=== PATIENT | female | born 1970 | race Caucasian/White ===

== ENCOUNTER 2025-01-12 09:35 | Emergency (ER) | payer BC, SELFPAY ==
[2025-01-12 09:44] VITALS: BP 121/79; PULSE 84; RESP 19; TEMP 36.7; O2SAT 95; BMI 24.5
--- NOTE | 2025-01-12 09:56 | EKG_ITS ---
[facility] Test Date: 2025-01-12 Pat Name: MARIKA FLORENTINO Department: Room: - Gender: Female Counter Manager: : 1970 Requested By: Salvador Diaz Order Number: [id number] Reading MD: Salvador Diaz Measurements Intervals [place] Rate: 89 P: 44 DC: 131 QRS: 60 QRSD: 81 T: 57 QT: 338 QTc: 413 Interpretive Statements SINUS RHYTHM Compared to ECG 08/17/2020 10:13:39 T-wave abnormality no longer present /[id number].pdf
--- NOTE | 2025-01-12 09:56 | XR_ITS ---
EXAMINATION: PA chest single view TECHNIQUE: Upright PA chest single view Date and time: January 12, 2025, 10 0 3:00 a.m. INDICATIONS: Chest pain coughing 2 months. FINDINGS: Normal heart size Lungs are clear. Moderate osteopenia IMPRESSION: No active disease
--- NOTE | 2025-01-12 10:29 | PD.EDCHEST ---
ED Chest Pain RME/HPI General Chief Complaint: General Adult/Misc Complain Stated Complaint: SHARP C/P AM, SOB, H/A FATIGUE X 1 MONTH, NAUSEA Time Seen by Provider: 01/12/25 09:45 Source: patient Arrival date/time: 01/12/25 09:35 54-year-old female with no known medical history presents to the emergency room with a chief complaint of 8 out of 10 right sternal chest pain that radiates to her right arm x 2 days, and shortness of breath and weakness x 1 month Mode of arrival: ambulatory Limitations: no limitations Related Data Home Medications ?Medication ?Instructions ?Recorded ?Confirmed albuterol sulfate 90 mcg/actuation 2 inh inhalation DAILY PRN Wheezing 07/16/23 07/20/23 aerosol inhaler cholecalciferol (vitamin D3) 50 50 mcg PO QWEEK 07/16/23 07/20/23 mcg (2,000 unit) tablet cholestyramine-aspartame 4 gram 4 ea PO DAILY 07/16/23 07/20/23 oral powder for susp in a packet (Cholestyramine Light) tiotropium 2.5 mcg-olodaterol 2.5 1 puff inhalation DAILY PRN 07/16/23 07/20/23 mcg/actuation mist for inhalation Wheezing (Stiolto Respimat) Allergies Allergy/AdvReac Type Severity Reaction Status Date / Time codeine Allergy Mild Rash Verified 01/12/25 09:39 Penicillins Allergy Mild Rash Verified 01/12/25 09:39 acetaminophen AdvReac Unknown LIVER Verified 01/12/25 09:39 PROBLEMS Review of Systems Review of Systems Systems Reviewed: All systems reviewed, normal except as documented Constitutional Constitutional: Reports system reviewed and no additional complaints, except as documented, Denies fatigue, Denies fever(s), Denies headache(s) and Denies weakness Eyes Eyes: Reports system reviewed and no additional complaints, except as documented, Denies blurry vision and Denies change in vision ENT Ears, Nose, Mouth, and Throat: Reports system reviewed and no additional complaints, except as documented, Denies otalgia, Denies headache(s), Denies nasal congestion, Denies throat swelling and Denies vertigo Cardiovascular Cardiovascular: Reports system reviewed and no additional complaints, except as documented, Reports chest pain, Reports dyspnea and Reports dyspnea on exertion Respiratory Respiratory: Reports system reviewed and no additional complaints, except as documented, Denies chest congestion, Denies cough, Reports dyspnea, Reports dyspnea on exertion and Denies wheezing Gastrointestinal Gastrointestinal: Reports system reviewed and no additional complaints, except as documented, Denies abdominal pain, Denies cramping, Denies nausea and Denies vomiting Genitourinary Genitourinary: Reports system reviewed and no additional complaints, except as documented Musculoskeletal Musculoskeletal: Reports system reviewed and no additional complaints, except as documented and Denies back pain Integumentary/Breasts Skin/Breast: Reports system reviewed and no additional complaints, except as documented and Denies wounds Neurologic Neurologic: Reports system reviewed and no additional complaints, except as documented, Denies confusion, Denies headache(s), Denies lack of coordination, Denies vertigo and Denies weakness Psychiatric Psychiatric: Reports system reviewed and no additional complaints, except as documented, Denies anxiety, Denies confusion, Denies depression, Denies paranoia, Denies suicidal ideation and Denies tactile hallucinations Endocrine Endocrine: Reports system reviewed and no additional complaints, except as documented and Denies fatigue Hematologic/Lymphatic Hematologic/Lymphatic: Reports system reviewed and no additional complaints, except as documented and Denies lymphadenopathy Allergic/Immunologic Allergic/Immunologic: Reports system reviewed and no additional complaints, except as documented, Denies throat swelling, Denies urticaria and Denies wheezing Past Medical History Past Medical History NEUROLOGIC: Negative Neurological Disorders or Seizures CARDIAC: Positive Cardiac Disorders and Hypercholesterolemia; Negative Myocardial Infarction, Cardiac Arrhythmia, Coronary Artery Disease, Congestive Heart Failure or Hypertension RESPIRATORY: Positive Asthma; Negative Chronic Obstructive Pulmonary Disease (COPD) GASTROINTESTINAL: Positive Gastrointestinal Disorders (diarrhea) and Hepatitis (autoimmune) GENITOURINARY: Negative Genitourinary Disorders or Renal Disease MUSCULOSKELETAL: Positive Musculoskeletal Disorders ENDOCRINE: Negative Endocrine Disorders, Diabetes Mellitus Type 1 or Diabetes Mellitus Type 2 OTHER HISTORY: Positive Autoimmune Disease (autoimmune hepatitis, liver lesions) and Shingles; Negative Blood Transfusions, Anesthesia Reactions or Cancer Surgical History SURGICAL: Positive Tubal Ligation Social History SMOKING STATUS: Never smoker ED Exam General Limitations: Present no limitations General appearance: Present alert and in no apparent distress Head Head exam: Present atraumatic Eye Eye exam: Present normal appearance, PERRL and EOMI ENT ENT exam: Present normal exam, normal oropharynx and mucous membranes moist Neck Neck exam: Present normal inspection, full ROM and trachea midline Chest Chest inspection: Present normal inspection and symmetric chest wall rise Respiratory Respiratory exam: Present normal lung sounds bilaterally; Absent respiratory distress, wheezes, stridor, accessory muscle use or prolonged expiratory phase Cardiovascular Cardiovascular exam: Present regular rate, normal rhythm, normal heart sounds, +S1 and +S2; Absent bradycardia, tachycardia, irregular rhythm, systolic murmur or diastolic murmur Abdominal Exam Abdominal exam: Present soft and normal bowel sounds Extremities Exam Extremities exam: Present normal inspection and full ROM Back Exam Back exam: Present normal inspection and full ROM Neurological Exam Neurological exam: Present alert, oriented X3 and CN II-XII intact Psychiatric Psychiatric exam: Present normal affect and normal mood Skin Skin exam: Present warm, dry, intact and normal color Course Quality Measures none Orders Category Date Time Status EKG (ED ONLY) *Do not use* NOW Care 01/12/25 09:56 Completed EKG (ED Only) Stat Exams 01/12/25 09:56 Draft XR chest 1V portable Stat Exams 01/12/25 09:56 Completed B-Type Natriuretic Peptide Stat Lab 01/12/25 10:23 Completed CBC Stat Lab 01/12/25 10:23 Completed Cocci Serology IgM with reflex to IgG [Cocci Serology, Lab 01/12/25 10:23 Received Unk History] Stat Comprehensive Metabolic Panel Stat Lab 01/12/25 10:23 Completed Drug Screen,Urine Stat Lab 01/12/25 10:55 Completed Free T4 (Free Thyroxine) Stat Lab 01/12/25 10:23 Completed Magnesium Stat Lab 01/12/25 10:23 Completed Partial Thromboplastin Time Stat Lab 01/12/25 10:23 Completed Prothrombin Time with INR Stat Lab 01/12/25 10:23 Completed TSH [Thyroid Stimulating Hormone] Stat Lab 01/12/25 10:23 Completed Troponin I Stat Lab 01/12/25 10:23 Completed Urinalysis, C/S if Indicated Stat Lab 01/12/25 10:55 Completed Vital Signs Vital signs: Vital Signs Temperature 98.0 F 01/12/25 09:44 Pulse Rate 84 01/12/25 09:44 Respiratory Rate 19 01/12/25 09:44 Blood Pressure 121/79 01/12/25 09:44 Pulse Oximetry (%) 95 01/12/25 09:44 Oxygen Delivery Method Room Air 01/12/25 09:44 Chest Pain MDM Narrative MDM Narrative:: 54-year-old female with no known medical history presents to the emergency room with a chief complaint of 8 out of 10 right sternal chest pain that radiates to her right arm x 2 days, and shortness of breath and weakness x 1 month Patient is hemodynamically stable and in no apparent distress Physical examination shows clear bilateral lung sounds there is no wheezing rales or any abnormal breath sounds. The patient has a strong and regular rhythm S1 and S2 noted. Patient is complaining of right sternal chest pain that is 8 out of 10 in severity and radiates to the right arm. EKG was completed and shows normal sinus rhythm at [address] deviation. X-ray of the chest was negative for any pneumonia. The patient was educated that if valley fever test was completed but the results are still pending. 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 Patient was discharged and educated to follow-up with primary care provider in the next 24 to 48 hours and return to the emergency room for any evidence of worsening signs or symptoms Patient data External records reviewed:: [facility] previous records Clinical information provided by:: patient Social determinants that could affect healthcare access:: none Patient has the following chronic illnesses:: No chronic illness How is presenting disease/condition affected by chronic disease/condition?: no chronic disease Evaluation data The following diagnostics were reviewed and interpreted by me:: lab results and radiology exam(s) Lab and/or radiology exams considered but not ordered:: Labs and radiology exams considered and ordered Interpretation Summary: Chest [id number]: Normal heart size Lungs are clear. Moderate osteopenia IMPRESSION: No active disease Medications / Prescriptions Medications or Prescriptions considered but not ordered:: No medication given Medication administrations:: No medication given Consultations Consultation(s) initiated? (list below): No Diagnosis Chest Pain Differential Diagnosis: stable angina, unstable angina pectoris, atypical chest pain, st elevation myocardial infarction, costochondritis and chest pain Most likely diagnosis given after review of the tests above:: Chest pain Admission Indicated Admission indicated?: not indicated Admission Request Was there a request for admission?: No Disposition Plan Disposition Plan: Discharge Discharge Attestation Discharge Attestation: The patient and all family members were given an opportunity to ask questions and understood the discharge instructions. Discharge instructions specifically effects, indications for sooner follow up or return to the emergency department, and the expected course of current diagnosis. Patient condition: Stable Discharge Plan Plan Patient Disposition: HOME (Self Care) Discharge Disposition comment: Stable Prescriptions/Referrals Prescriptions/Med Rec: No Action albuterol sulfate 90 mcg/actuation HFA aerosol inhaler 2 inh INHALATION DAILY PRN (Reason: Wheezing) cholestyramine-aspartame [Cholestyramine Light] 4 gram powder in packet 4 ea PO DAILY Stiolto Respimat 2.5-2.5 mcg/actuation mist 1 puff INHALATION DAILY PRN (Reason: Wheezing) cholecalciferol (vitamin D3) 50 mcg (2,000 unit) Tablet 50 mcg PO QWEEK Referrals: Jaylin Matta FNP [Primary Care Provider] - In 1 week Problem List Clinical Impression: Chest pain Patient/Caregiver Discharge Instructions Education Materials: ED Chest Pain, Noncardiac Additional Instructions: Please follow-up with your primary care provider in the next 24 to 48 hours Your cardiac examination today was within normal limits. Your chest x-ray was negative for any pneumonic infiltrates Your valley fever blood work was sent out please follow-up with your primary care provider with your results For any evidence of worsening signs or symptoms return to emergency room immediately Print Language: [place] Stand Alone Forms: [place] Award Info., Work/School Release, Patient Portal Info Letter
[2025-01-12 10:42] LABS: Basophils # (Auto) 0.1 Thou/mm3 (0.0-0.2); Basophils % (Auto) 1 % (0-2.5); Eosinophils # (Auto) 1.6 Thou/mm3 (0.0-0.5); Eosinophils % (Auto) 17 % (0-10); Hematocrit 43.4 % (36.0-46.0); Hemoglobin 14.4 g/dL (12.0-16.0); Immature Granulocytes Auto 0.03 Thou/mm3 (0.00-0.00); Lymphocytes # (Auto) 1.8 Thou/mm3 (1.0-4.8); Lymphocytes % (Auto) 19 % (10-50); Mean Corpuscular HGB Conc 33.2 g/dl (31.0-37.0); Mean Corpuscular Hemoglobin 31.0 pg (25.0-35.0); Mean Corpuscular Volume 94 fL (80-100); Monocytes # (Auto) 0.5 Thou/mm3 (0.0-0.8); Monocytes % (Auto) 6 % (0-12); Neutrophils # (Auto) 5.3 Thou/mm3 (1.8-7.7); Neutrophils % (Auto) 58 % (37-80); Nucleated Red Blood Cell # 0.00 Thou/mm3 (0.00-0.00); Nucleated Red Blood Cell % 0 /100 WBC (0); Platelet Count 254 Thou/mm3 (140-440); RDW Standard Deviation 41.9 fL (36.4-46.3); Red Blood Count 4.64 Miln/mm3 (4.00-5.20); White Blood Count 9.2 Thou/mm3 (3.6-11.0)
[2025-01-12 11:00] LABS: INR 1.0 (0.9-1.3); Partial Thromboplastin Time 28.9 Seconds (22.0-36.0); Prothrombin Time 10.3 Seconds (9.0-12.2)
[2025-01-12 11:03] LABS: Alanine Aminotransferase 32 U/L (10-49); Albumin, Serum 4.9 gm/dL (3.5-5.0); Anion Gap 9 (7-16); Aspartate Amino Transferase 23 U/L (0-34); BUN/Creatinine Ratio 13 Ratio (12-20); Bilirubin,Total 0.4 mg/dL (0.3-1.2); Blood Urea Nitrogen 10 mg/dL (9-23); Carbon Dioxide 27.2 mMol/L (20.0-31.0); Chloride 106 mMol/L (98-107); Creatinine (Component) 0.8 mg/dL (0.6-1.3); Estimated Creatinine Clearance 80.2 mL/min (>60); Globulin 2.1 gm/dL (2.3-3.5); Glucose 118 mg/dL (74-106); Magnesium 2.0 mg/dL (1.6-2.6); Osmolality,Calculated 283 (275-295); Potassium 4.0 mMol/L (3.4-5.1); Sodium 142 mMol/L (136-145); Total Protein 7.0 gm/dL (5.7-8.2); Troponin I < 0.002 ng/mL (0.0-0.045); eGFR > 60 See Note
[2025-01-12 11:04] LABS: Albumin/Globulin Ratio 2.3 (1.2-2.2); Alkaline Phosphatase 118 U/L (46-116); Free T4 (Free Thyroxine) 1.04 ng/dL (0.89-1.76); Thyroid Stimulating Hormone 1.06 uIU/mL (0.55-4.78)
[2025-01-12 11:05] LABS: Collection Type, Urine Clean Catch
[2025-01-12 11:21] LABS: Calcium 9.7 mg/dL (8.3-10.6); Calcium (Corrected) 9.7 mg/dL (8.5-10.1)
[2025-01-12 11:22] LABS: B-Type Natriuretic Peptide < 20 pg/mL (0-100)
[2025-01-12 11:22] LABS: Bilirubin,Urine Negative (Negative); Blood,Urine 1+ (Negative); Color,Urine Lt-Yellow (Lt Yel-Yel); Culture Indicated,Urine Not Indicated; Glucose, Urine Negative (Negative); Ketones,Urine Negative (Negative); Leukocyte Esterase,Urine Positive (Negative); Nitrite,Urine Negative (Negative); PH,Urine 5.5 (5.0-7.0); Protein,Urine Negative (Neg - Trace); RBC,Urine 3 /hpf (0-3); Specific Gravity,Urine 1.017 (1.001-1.035); Squamous Epithelial Cell,Urine 11 /hpf (0-5); Urobilinogen,Urine Negative mg/dL (0.0-1.0); WBC,Urine 9 /hpf (0-5)
[2025-01-12 11:23] LABS: Clarity,Urine Hazy (Clear/Hazy)
[2025-01-12 11:33] LABS: Amphetamine/Methamp Scrn,U Negative (Negative); Barbiturate Screen,Urine Negative (Negative); Benzodiazepines Screen,Urine Negative (Negative); Benzoylecgonine Screen, Ur Negative (Negative); Fentanyl Screen,Urine Negative (Negative); Opiate Screen,Urine Negative (Negative); THC Screen,Urine Positive (Negative)
[2025-01-12 14:01] LABS: Cocci Serology, IgM Negative (Negative)
[2025-01-13 14:35] LABS: Cocci Serology, IgG Negative (Negative)
== END 2025-01-12 11:19 | disposition home or self-care (01) ==
PROVIDERS: Emergency Provider Nurse Practitioner Family; PCP Nurse Practitioner Family
DX: R07.2 Precordial pain (principal); E78.00 Pure hypercholesterolemia, unspecified
CPT/HCPCS: 36415; 71045; 80053; 80307; 81001; 83735; 83880; 84439; 84443; 84484; 85025; 85610; 85730; 86331; 86635; 93005; 99283